=== PATIENT | female | born 1995 | race African-American/Black ===

== ENCOUNTER 2024-05-09 14:07 | Emergency (ER) | payer MEDICAID ==
[~2024-05-09] VITALS: Ht 162.6 cm; Wt 50.0 kg
[2024-05-09 14:10] VITALS: O2SAT 100
[2024-05-09 14:32] VITALS: TEMP 37.1
[2024-05-09] MEDS ORDERED: NALO4SPR BOTHNSTRLS (16:31)
[2024-05-09 17:00] VITALS: BP 115/72; PULSE 86; RESP 17; O2SAT 100
== END 2024-05-09 17:00 | disposition home or self-care (01) ==
LOC: EDBD 14:15 → ER 14:15
DX: T40.411A Poisoning by fentanyl or fentanyl analogs, accidental (unintentional), initial encounter (principal); Y92.9 Unspecified place or not applicable
CPT/HCPCS: 99283